=== PATIENT | female | born 1970 | race Caucasian/White ===

== ENCOUNTER 2023-03-18 09:55 | Outpatient (CLI) | payer BC | END 2023-03-18 09:56 | disposition home or self-care (01) | LOC: CSHMAMMO 09:55 | PROVIDERS: ATTEND Family Medicine | DX: Z12.31 Encounter for screening mammogram for malignant neoplasm of breast (principal); Z80.3 Family history of malignant neoplasm of breast | CPT/HCPCS: 77063; 77067 ==

== ENCOUNTER 2024-04-21 08:45 | Outpatient (CLI) | payer BC | END 2024-04-21 08:46 | disposition home or self-care (01) | LOC: CSHMAMMO 08:45 | PROVIDERS: ATTEND Family Medicine | DX: Z12.31 Encounter for screening mammogram for malignant neoplasm of breast (principal); Z80.3 Family history of malignant neoplasm of breast | CPT/HCPCS: 77063; 77067 ==